=== PATIENT | male | born 1990 | race Caucasian/White ===

== ENCOUNTER 2022-05-04 10:07 | Emergency (ER) | payer OTHER, SELFPAY ==
--- NOTE | ~2022-05-04 | XR_ITS ---
EXAMINATION: XR FEMUR, LEFT CLINICAL INFORMATION: Left leg injury COMPARISON: None TECHNIQUE: AP and lateral views of the left femur were obtained. FINDINGS: The bones and soft tissues are normal. No fracture. No osseous lesions. XR/XR femur LT 2V IMPRESSION: Normal left femur.
[2022-05-04 10:35] VITALS: BP 101/58; PULSE 77; RESP 18; TEMP 36.7; O2SAT 98; BMI 19.5
--- NOTE | 2022-05-04 15:06 | ED.LOWEXIN ---
HPI - Extremity Injury (Lower) General Chief Complaint: Extremity Injury, Lower Stated Complaint: L leg pain Time Seen by Provider: 05/04/22 14:18 Source: patient Mode of arrival: ambulatory Limitations: no limitations History of Present Illness HPI Narrative: Pt is a 32 year old male with no known past medical history who presents to the ED for L leg injury. He states that 2 days ago he was playing baseball and began to feel pain in his L quad/hip while running the bases. He states the pain has gotten worse since the initial injury and cannot bear weight. He has tried taking Motrin with no relief of symptoms. He denies fevers, chills, numbness/tingling, and other joint pain. MD complaint: leg injury Onset (ago): day(s) (2) Place: street/outdoors Severity: severe Relieving factors: rest Exacerbating factors: weight bearing Associated symptoms: unable to bear weight Other symptoms: none Related Data Previous Rx's Medication Instructions Recorded cyclobenzaprine 10 mg tablet 10 mg PO Q8H #14 tabs 05/04/22 naproxen 500 mg tablet 500 mg PO BID PRN pain #14 tabs 05/04/22 oxycodone 5 mg tablet 5 mg PO Q6H PRN pain #10 tabs 05/04/22 prednisone 20 mg tablet 40 mg PO DAILY inflammation 5 days 05/04/22 #10 tabs Allergies Allergy/AdvReac Type Severity Reaction Status Date / Time No Known Allergies Allergy Verified 05/04/22 10:34 [No Known Allergies*] Review of Systems Review of Systems: Constitutional : No Fever, No Chills, No Fatigue, No Malaise Cardiovascular : No Chest Pain, No SOB, No Dyspnea on Exertion, No Orthopnea, No Edema, No Palpitations Respiratory : No Cough, No Dyspnea Gastrointestinal : No Nausea, No Vomiting, No Diarrhea, No abdominal Pain Genitourinary : no irregular bleeding, No Dysuria, No Urinary Frequency, No Hematuria, No Urinary Incontinence, No Urgency, No Flank Pain, No Urinary Flow Changes, No Hesitancy Musculoskeletal :+quad muscle pain, + hip pain. No other joint pain, No Myalgias, No Joint Swelling Skin : No Skin Lesions, No rash Neuro : No Weakness, No Numbness, No Paresthesias, No Loss of Consciousness, No Dizziness, No Headache Heme/Lymph: No Bruising, No Bleeding, Yes all other systems are reviewed and are negative [facility] Past Medical History Attestation statement: The following information was validated with the patient. Source: old records reviewed, obtained from family and nursing notes reviewed Social History Social History Advance Directives: No Advance Directives Information Provided: No Physical Exam Vital Signs: Vital Signs: Last Vital Signs Temp 98.1 F 05/04/22 10:35 Pulse 77 05/04/22 10:35 Resp 18 05/04/22 10:35 BP 101/58 L 05/04/22 10:35 Pulse Ox 98 05/04/22 10:35 O2 Del Method 05/04/22 10:35 BMI result Body Mass Index 19.5 Vital signs have been reviewed as normal and appeared to be correct. Blood pressure normal. Heart rate normal. Respiration rate normal. Temperature normal. Oxygen saturation normal. Appearance: Alert. Oriented. Actively playing. No acute distress. Head: Normal external exam. Normocephalic. Atraumatic. Able to rotate head bilaterally. Eyes: PERRLA. EOMI. No nystagmus noted. Conjunctiva and sclera normal. Eyelids normal. ENT: Hearing normal. No trismus noted. No drooling noted. No muffled voice noted. Neck: Normal inspection. Neck supple. FROM. CVS: Normal heart rate and rhythm. Respiratory: No respiratory distress. Painless inspiration. Abdomen: No obvious deformity. Back: No tenderness noted. Skin: Skin warm and dry. Normal skin color. Normal skin turgor. No rashes/lesions/lacerations noted. Extremities: No obvious deformities noted. Tenderness to palpation over the L proximal quadricep and anterolateral hip. Pt able to perform hip flexion/extension however limited due to pain. Pt able to bear weight on L leg however gait is limited due to pain. No obvious ligamentous or tendon injury noted. Not consistent with muscle rupture noted. Otherwise All other extremities exhibit normal range of motion, nontender. Neuro: Oriented X 3. Moving all extremities. No focal motor deficits. Muscle tone normal throughout. Course Course Course Narrative: Pt is a 32 year old male with no known past medical history who presents to the ED for L leg injury. VSS. On exam, there was significant tenderness to palpation over the L proximal quadricep and anterolateral hip. Pt able to perform hip flexion/extension however limited due to pain. Pt able to bear weight on L leg however gait is limited due to pain. X-ray of the L femur negative for any acute bony abnormalities or fractures. Findings consistent with muscle/tendon strain. Will send prescription for Flexeril and Oxycodone for pain. Discussed alternating between Tylenol and Ibuprofen as needed for pain. Advised pt to follow up with PCP and orthopedics. Pt verbalized understanding and agrees to plan. MDM - Extremity Injury (Lower) Medical Records Attestation: I reviewed the patient's medical records. Imaging Data X-ray left femur : Attestation: I personally reviewed and interpreted this imaging study as follows: My impression: No acute fracture. Radiologist's impression: EXAMINATION: XR FEMUR, LEFT CLINICAL INFORMATION: Left leg injury? COMPARISON: None? TECHNIQUE: AP and lateral views of the left femur were obtained. FINDINGS: The bones and soft tissues are normal. No fracture. No osseous lesions. ? XR/XR femur LT 2V IMPRESSION: Normal left femur. Discharge Plan Discharge Clinical Impression: Strain of left quadriceps muscle Patient Disposition: Home, Self-Care Instructions: Muscle Strain (ED), Groin Strain (ED) Prescriptions: New naproxen 500 mg tablet 500 mg PO BID PRN (Reason: pain) Qty: 14 0RF prednisone 20 mg tablet 40 mg PO DAILY 5 Days Qty: 10 0RF oxycodone 5 mg tablet 5 mg PO Q6H PRN (Reason: pain) Qty: 10 0RF Rx Instructions: Partial Fill upon patient request. cyclobenzaprine 10 mg tablet 10 mg PO Q8H Qty: 14 0RF Referrals: [facility] – [place] [facility] [Provider Group] ( If symptoms persist for longer than 2-3 weeks make a follow-up appointment) Interventions: ED Discharge Assessment Last Done: 05/04/22 15:40 Discharge Date/Time: 05/04/22 15:47 Print Language: Mongolian
[2022-05-04] MEDS: NaPROXEN 500 MG TABLET PO (15:29)
[2022-05-04] MEDS: Cyclobenzaprine HCl 10 MG TABLET PO (15:29)
[2022-05-04] MEDS: oxyCODONE HCl Immed Release 5 MG TABLET PO (15:30)
[2022-05-04] MEDS: predniSONE 20 MG TABLET 60 MG PO (15:31)
== END 2022-05-04 15:47 | disposition home or self-care (01) ==
PROVIDERS: Emergency Provider Emergency Medicine
DX: S76.112A Strain of left quadriceps muscle, fascia and tendon, initial encounter (principal); M79.605 Pain in left leg; X58.XXXA Exposure to other specified factors, initial encounter; Y93.9 Activity, unspecified; Y92.9 Unspecified place or not applicable; Y99.9 Unspecified external cause status; Z79.899 Other long term (current) drug therapy
CPT/HCPCS: 73552; 99283